=== PATIENT | female | born 1960 | race Caucasian/White ===

== ENCOUNTER 2024-02-01 18:36 | Emergency (ER) | payer MEDICARE, MEDICAID, SELFPAY ==
--- NOTE | ~2024-02-01 | XR_ITS ---
EXAMINATION: XR LUMBOSACRAL SPINE WITH OBLIQUES CLINICAL INFORMATION: Fall, pain. Multiple surgeries. COMPARISON: None available. TECHNIQUE: AP, both oblique, and lateral views of the lumbar spine. Lateral view of the lumbosacral junction. FINDINGS: There is mild straightening of lumbar lordosis. There is loss of L4-L5 and L5-S1 disc heights with L3-L4 disc fusion. There are pedicular screws and interconnecting rods at L3 and L4 vertebra. XR/XR lumbar spine 4V min IMPRESSION: L3-L4 disc fusion with pedicular screws and interconnecting rods for stabilization. There are degenerative disc changes L4-L5 and L5-S1 disc levels. There is no visible acute fracture, dislocation or subluxation.
--- NOTE | ~2024-02-01 | XR_ITS ---
EXAMINATION: XR KNEE, RIGHT CLINICAL INFORMATION: Pain status-post fall. COMPARISON: None available. TECHNIQUE: AP, lateral, and both oblique views of the right knee. FINDINGS: Bony alignment and mineralization are normal. The lateral, medial and patellofemoral joint space compartments are well-maintained. There is moderate peripheral osteophyte formation of the lateral joint space compartment. No fracture, dislocation or significant joint effusion is seen. There is no foreign body. XR/XR knee RT 3V IMPRESSION: 1. There is mild to moderate osteoarthritic change of the lateral joint space compartment of the right knee. 2. No right knee fracture, dislocation or joint effusion is seen.
--- NOTE | ~2024-02-01 | XR_ITS ---
EXAMINATION: XR HAND/WRIST, LEFT CLINICAL INFORMATION: Pain status-post fall. COMPARISON: None TECHNIQUE: PA, lateral, and oblique views of the left hand and wrist. FINDINGS: Bony alignment and mineralization are normal. There is a neutral ulnar variance. There is minimal osteoarthritic change of the first metacarpophalangeal joint. There is mild osteoarthritic change of the second distal interphalangeal joint, with periarticular calcification. The proximal and distal carpal rows are intact. There is an accessory ossification center adjacent to the ulnar styloid. No fracture or dislocation is seen. There is no focal soft tissue swelling, gas or foreign body. XR/XR hand wrist LT IMPRESSION: There is minimal osteoarthritic change of the left first metacarpophalangeal joint, and mild osteoarthritic change is seen of the left second distal interphalangeal joint. No fracture or dislocation is seen. There is no focal bone erosion.
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
--- OUTSIDE RECORDS SUMMARY | 2024-02-01 19:07 | XMS_ITS | Continuity of Care Document ---
Author Organization [facility] em Address Unknown Care Team Providers Care Director Of Distribution Name Role Phone Jil WILSON, Jose F Mcgraw Primary Care Physician [phone] Encounter [facility] NBR [id number] Date(s): 09/12/21 - 10/12/21 [facility] Attending Physician: Ariella Chandra Admitting Physician: Ariella Chandra Referring Physician: Ariella Chandra Allergies, Adverse Reactions, Alerts Substance Reaction Severity Status Terramycin IM Active Duragesic Active Medications amitriptyline 25 mg oral tablet 1 tablet, By Mouth, Daily at bedtime, # 270 tablet, 0 Refills, Maintenance, Tablet Start Date: 05/23/11 Status: Ordered morphine 15 mg oral tablet, extended release 1 tablet, By Mouth, Every 8 hours, 0 Refills, Maintenance, ER Tablet Start Date: 05/23/11 Status: Ordered OxyContin 30 mg oral tablet, extended release 1 tablet, By Mouth, Every 12 hours, 0 Refills, Maintenance, ER Tablet Start Date: 05/23/11 Status: Ordered Topamax 100 mg oral tablet 1 tablet, By Mouth, 2 times a day, # 30 tablet, 0 Refills, Maintenance, Tablet Start Date: 05/23/11 Status: Ordered
--- OUTSIDE RECORDS SUMMARY | 2024-02-01 19:07 | XMS_ITS | Continuity of Care Document ---
Author Organization [facility] em Address Unknown Care Team Providers Care Router Operator Name Role Phone Jil WILSON, Jose F Mcgraw Primary Care Physician [id number] Date(s): 09/06/21 - 10/12/21 [facility] Attending Physician: Brenden Jay MD Admitting Physician: Brenden Jay MD Referring Physician: Rubia Clemens Allergies, Adverse Reactions, Alerts Substance Reaction Severity [...] Maintenance, Tablet Start Date: 05/23/11 Status: Ordered Vital Signs Most recent to oldest [Reference Range]: 1 Height 173.00 cm (09/12/21 10:35 AM) Weight 89.7 kg (09/12/21 10:35 AM) Oxygen Saturation [94-100 %] 98 % (09/12/21 10:35 AM) Pulse Rate [55-90 bpm] 94 bpm *H* (09/12/21 10:35 AM) Body Mass Index [18.5-24.99] 29.97 *H* (09/12/21 10:35 AM) Temperature [96.8-100.4 DegF] 97.3 DegF (09/12/21 10:35 AM) Mode of Delivery (Oxygen) Room air (3/9/22 10:35 AM) Temperature Route Temporal (09/12/21 10:35 AM) Dry Weight 89.7 kg (09/12/21 10:35 AM) Weight Obtained Via Standing scale (09/12/21 10:35 AM)
--- OUTSIDE RECORDS SUMMARY | 2024-02-01 19:07 | XMS_ITS | Continuity of Care Document ---
Author Organization [facility] em Address Unknown Care Team Providers Care Physician Ophthalmologist Name Role Phone Jil WILSON, Jose F Mcgraw Primary Care Physician [phone] Encounter [facility] NBR [id number] Date(s): 09/06/21 - 10/12/21 [facility] Attending Physician: Brenden Jay MD Admitting Physician: [...]
--- OUTSIDE RECORDS SUMMARY | 2024-02-01 19:07 | XMS_ITS | Continuity of Care Document ---
Author Organization [facility] em Address Unknown Care Team Providers Care Seed Mill Superintendent Name Role Phone Jil WILSON, Jose F Mcgraw Primary Care Physician [phone] Encounter [facility] NBR [id number] Date(s): 09/12/21 - 10/12/21 [facility] Attending Physician: Ariella Chandra Admitting Physician: Ariella [...]
[2024-02-01 19:12] VITALS: BP 133/51; PULSE 77; RESP 16; TEMP 36.4; O2SAT 98; BMI 30.5
--- NOTE | 2024-02-01 19:24 | ED_ITS ---
HPI - Fall General Chief Complaint: Fall Stated Complaint: Back, LT wrist, RT knee injury today @ 1730 Time Seen by Provider: 02/01/24 18:54 Source: patient Mode of arrival: wheelchair Limitations: no limitations History of Present Illness ED Provider: Dr. Dianne Santiago HPI Narrative: Patient comes to the emergency room complaining of left wrist pain, lumbar back pain, right knee pain. Patient states that she fell earlier today. Patient denies hitting her head or losing consciousness. Patient states she landed forward done her knee. Patient denies being on blood thinners Related Data Previous Rx's ?Medication ?Instructions ?Recorded cyclobenzaprine 10 mg tablet 10 mg PO TID PRN muscle spasm #14 02/01/24 tabs Allergies Allergy/AdvReac Type Severity Reaction Status Date / Time Penicillins [PCN] Allergy Unknown Verified 02/01/24 19:13 Review of Systems Review of Systems: Constitutional : No Weight loss, No Fever, No Chills, No Night Sweats, No Fatigue, No Malaise ENT/Mouth : No Hearing loss, No Ear Pain, No Nasal Congestion, No Sinus Pain, No Hoarseness, No sore throat, No Rhinorrhea, No Swallowing Difficulty Eyes: No Eye Pain, No Swelling, No Redness, No Foreign Body, No Discharge, No Vision Changes Cardiovascular : No Chest Pain, No SOB, No Dyspnea on Exertion, No Orthopnea, No Edema, No Palpitations Respiratory : No Cough, No Sputum, No Wheezing, No Smoke Exposure, No Dyspnea Gastrointestinal : No Nausea, No Vomiting, No Diarrhea, No Constipation, No abdominal Pain, No Hematochezia, No Melena Genitourinary : no irregular bleeding, No Dysuria, No Urinary Frequency, No Hem aturia, No Urinary Incontinence, No Urgency, No Flank Pain, No Urinary Flow Changes, No Hesitancy Musculoskeletal : Complaining of acute on chronic pain on the right knee, left wrist and lower back Skin : No Skin Lesions, No rash Neuro : No Weakness, No Numbness, No Paresthesias, No Loss of Consciousness, No Dizziness, No Headache Psych : No Anxiety/Panic, No Depression, No SI/HI/AH/VH, No Social Issues, Heme/Lymph: No Bruising, No Bleeding,No Lymphadenopathy Endocrine : No Polyuria, No Polydipsia, No Temperature Intolerance [facility] Social History Social History Advance Directives: Yes Advance Directives Information Provided: Yes Advance Directives on File: No Do you have a plan to hurt others: No Plan Physical Exam Vital Signs: Vital Signs: Last Vital Signs Temp 97.5 F 02/01/24 19:12 Pulse 77 02/01/24 19:12 Resp 16 02/01/24 19:12 BP 133/51 L 02/01/24 19:12 Pulse Ox 98 02/01/24 19:12 O2 Del Method Room Air 02/01/24 19:12 BMI result Body Mass Index 30.5 Const: Other: Appearance: Alert. Oriented X3. Extremely anxious Eyes: Pupils equal, round and reactive to light. ENT: Pharynx normal. Neck: Normal inspection. Neck supple. No lymph nodes noted. No crepitus CVS: Normal heart rate and rhythm. Pulses normal. Normal S1 and S2 Respiratory: No respiratory distress. Breath sounds normal. No Wheezing. No rales Abdomen: Soft and nontender. No rigidity. No distention. Skin: Skin warm and dry. Normal skin color. Normal skin turgor. Extremities: No obvious deformity on the right knee, no obvious effusion. Left wrist does not seem to be deformed. Pain to palpation on bilateral aspects of the back Neuro: Oriented X 3. No motor deficit. No sensory deficit. Moving all extremities. No slurred speech. CN 2 through 12 grossly intact Psych: Very anxious, hyperventilating Course Course Course Narrative: Patient is extremely anxious. Patient screams in pain before a touch her -pain medication offered, patient declined. -patient was given 2 mg of p.o. Ativan Medications Administered Discontinued Medications Generic Name Dose Route Start Last Admin Trade Name Shayq PRN Reason Stop Dose Admin Lorazepam 2 mg 02/01/24 19:20 02/01/24 19:36 Lorazepam 1 Mg Tablet PO 02/01/24 19:21 2 mg ONCE ONE Administration Medical Decision Making Medical Decision Making MDM Narrative: My interpretation of x-rays: No obvious acute fracture. After Ativan, patient feeling much better. Patient is still declining pain medication. Patient agrees for a prescription of muscle relaxants Radiology Impression Discussion of test interpretation with radiology: I have reviewed the radiologist's reading. Radiologist Impression: FINDINGS: There is mild straightening of lumbar lordosis. There is loss of L4-L5 and L5-S1 disc heights with L3-L4 disc fusion. There are pedicular screws and interconnecting rods at L3 and L4 vertebra. XR/XR lumbar spine 4V min IMPRESSION: L3-L4 disc fusion with pedicular screws and interconnecting rods for stabilization. There are degenerative disc changes L4-L5 and L5-S1 disc levels. There is no visible acute fracture, dislocation or subluxation. Discharge Plan Discharge Clinical Impression: Fall, Contusion Patient Disposition: Home, Self-Care Instructions: Contusion in Adults (ED), Fall Prevention (ED) Additional Instructions: Please follow-up with your primary care physician tomorrow. If you have any worsening or new symptoms, please return to the emergency room or call 911 Prescriptions: New cyclobenzaprine 10 mg tablet 10 mg PO TID PRN (Reason: muscle spasm) Qty: 14 0RF Print Language: Yoruba
[2024-02-01] MEDS: LORazepam 1 MG TABLET 2 MG PO (19:36)
[2024-02-01 21:41] VITALS: BP 133/51; PULSE 77; RESP 16; TEMP 36.4; O2SAT 98
== END 2024-02-01 21:42 | disposition home or self-care (01) ==
PROVIDERS: Emergency Provider Emergency Medicine; PCP Internal Medicine
DX: S60.212A Contusion of left wrist, initial encounter (principal); S89.91XA Unspecified injury of right lower leg, initial encounter; M54.50 Low back pain, unspecified; X58.XXXA Exposure to other specified factors, initial encounter; W19.XXXA Unspecified fall, initial encounter; Y93.89 Activity, other specified; Y92.89 Other specified places as the place of occurrence of the external cause; Y99.8 Other external cause status
CPT/HCPCS: 72110; 73110; 73130; 73562; 99283